=== PATIENT | male | born 1960 | race Caucasian/White ===

== ENCOUNTER 2023-12-09 07:24 | Day surgery (SDC) | payer MEDICAID ==
[~2023-12-09] VITALS: Ht 177.8 cm; Wt 111.1 kg
[2023-12-09] MEDS ORDERED: MEPERIDINE 100 MG INJ. 100 MG/ML VIAL ONE (07:47)
[2023-12-09] MEDS ORDERED: MIDAZOLAM HCL 5 MG/5 ML VIAL ONE (07:47)
[2023-12-09 14:41] VITALS: BP_SYST 116; PULSE 67; RESP 16; TEMP 98.1; O2SAT 97
== END 2023-12-09 10:58 | disposition home or self-care (01) ==
LOC: SDS 07:24 → SMU 07:27 → SDS 10:58
PROVIDERS: ATTEND Student in an Organized Health Care Education/Training Program
DX: Z12.11 Encounter for screening for malignant neoplasm of colon (principal); D12.2 Benign neoplasm of ascending colon; K57.30 Diverticulosis of large intestine without perforation or abscess without bleeding; K64.8 Other hemorrhoids; K64.4 Residual hemorrhoidal skin tags
CPT/HCPCS: 45385; 88305; 99152; 99153; G0378; J2250; J2175